=== PATIENT | male | born 1990 | race Two or more races ===

== ENCOUNTER → 2022-01-01 | Outpatient (CLI) | payer OTHER ==
--- NOTE | 2022-01-01 11:40 | RAD ---
Study: XR EXAM OF ANKLE_RIGHT 2 VIEWS Indication: Right ankle pain. No reported injury. Comparison: None. Findings: Symmetric ankle mortise considering the absence of weightbearing. Maintained ankle joint space height . No fracture or periostitis. No significant arthrosis throughout the partially imaged foot. Unremark able talar dome. Impression: No fracture, malalignment or significant arthrosis at the right ankle. Electronically signed by: ZAIN LABOY MD (01/01/2022 11:38 AM) [id number]
--- NOTE | 2022-01-01 11:41 | RAD ---
Study: XR LUMBAR SPINE 2-3V Indication: Low back pain. Comparison: None. Findings: 5 nonrib-bearing lumbar vertebral elements. Normal alignment in the coronal plane. Straightening of l umbar lordosis. Maintained vertebral body and disc space height. No listhesis. Unremarkable facet henry nts. Impression: Straightening of lumbar lordosis. Otherwise unremarkable lumbar spine radiographs. Electronically signed by: ZAIN LABOY MD (01/01/2022 11:38 AM) [id number]
--- NOTE | 2022-01-01 11:42 | RAD ---
Study: XR KNEE_RT 1-2 VIEWS Indication: Right knee pain. Comparison: None. Findings: Maintained femorotibial compartment joint space height. No fracture or malalignment. No large knee lisa int effusion. Normal osseous mineralization. Unremarkable soft tissues. Impression: No fracture, malalignment or significant arthrosis at the right knee. Electronically signed by: ZAIN LABOY MD (01/01/2022 11:39 AM) [id number]
== END ==
LOC: LAB 08:44
PROVIDERS: ATTEND Anesthesiology Pain Medicine
DX: Z02.71 Encounter for disability determination (principal); M40.56 Lordosis, unspecified, lumbar region; M25.561 Pain in right knee; M25.571 Pain in right ankle and joints of right foot
CPT/HCPCS: 72100; 73560; 73600